=== PATIENT | female | born 1945 | race Caucasian/White ===

== ENCOUNTER 2017-05-21 21:04 | Emergency (ER) | payer OTHER, MEDICARE ==
[~2017-05-21] VITALS: Ht 162.6 cm; Wt 88.5 kg
[~2017-05-21 21:04] MED LIST: ACETAMINOPHEN500 M4 PO; ADVIL200 M2 PO; ASPIRIN EC81 M1 PO; ATORVASTATIN CA80 M1 PO; CALTRATE 600 +1 EACH PO; CIPRO500 M1 PO; CLOPIDOGREL75 M1 PO; CO Q-10400 MG PO; CRESTOR20 MG PO; FLAGYL500 MG PO; FUROSEMIDE20 M1 PO; JANUVIA100 M1 PO; LISINOPRIL2.5 M1 PO; METAMUCIL0.52 GM PO; METOPROLOL TART25 M1 PO; NEXIUM40 M1 PO; PERCOCET 5-3251 EACH PO; PREDNISONE10 MG PO; SENOKOT8.6 M2 PO; SYNTHROID0.125 MG PO; SYNTHROID125 MCG PO; VITAMIN D1000 UNI1 PO; VITAMIN E400 UNI2 PO; ZOFRAN ODT4 M1 SL
[2017-05-21 21:30] LABS: ABSOLUTE BASOPHIL COUNT 0.1 /CUMM (0.0-0.2); ABSOLUTE EOSINOPHIL COUNT 0.1 /CUMM (0.0-0.7); ABSOLUTE LYMPH COUNT 2.4 /CUMM (1.2-3.4); ABSOLUTE MONOCYTE COUNT 0.5 /CUMM (0.10-0.60); BASOPHIL % 1.1 % (0.0-2.0); EOSINOPHIL % 2.1 % (0-5); GRANULOCYTE % 48.9 % (42.2-75.2); HEMATOCRIT 47.5 % (37-47); MEAN CORPUSCULAR HGB 30.7 PG (27.0-31.0); MEAN CORPUSCULAR HGB CONC 33.3 G/DL (33.0-37.0); MEAN PLATELET VOLUME 7.1 FL (7.4-10.4); PLATELET COUNT 322 /CUMM (130-400); RBC DISTRIBUTION WIDTH 13.3 % (11.5-14.5); RED BLOOD CELL CT 5.16 /CUMM (4.20-5.40); WHITE BLOOD CELL COUNT 6.1 /CUMM (4.8-10.8)
--- NOTE | 2017-05-21 23:27 | ED GI/GU/ABDOMINAL COMPLAINT ---
History of Present Illness General Chief Complaint: General Adult Stated Complaint: PAIN BEHIND NECK,EPIGASTRIC PAIN,NAUSEA,DIARRHEA Source: patient Exam Limitations: no limitations Vital Signs & Intake/Output Vital Signs & Intake/Output Vital Signs Date Time Temp Pulse Resp B/P B/P Pulse O2 O2 Flow FiO2 Mean Ox Delivery Rate 05/21 2122 97.5 65 20 135/85 96 Room Air ED Intake and Output 05/22 0000 05/21 1200 Intake Total Output Total Balance Patient 195 lb Weight Allergies Coded Allergies: codeine (Severe, PARALYZED 09/06/15) piroxicam (Intermediate, HALLUCINATIONS 09/06/15) Reconcile Medications Acetaminophen 500 MG TABLET 2 TAB PO DAILY PAIN (Reported) Aspirin (Ecotrin*) 81 MG TABLET.DR 1 TAB PO DAILY HEART/BLOOD (Reported) Atorvastatin Calcium 80 MG TABLET 0.5 TAB PO DAILY CHOLESTEROL (Reported) Calcium Carbonate/Vitamin D3 (Caltrate 600 + D Tablet) 600 MG-800 TABLET 1 TAB PO DAILY SUPPLEMENT (Reported) Cholecalciferol (Vitamin D3) (Vitamin D) 1,000 UNIT CAPSULE 1 CAP PO DAILY SUPPLEMENT (Reported) Clopidogrel Bisulfate (Clopidogrel) 75 MG TABLET 1 TAB PO DAILY BLOOD THINNER (Reported) Esomeprazole (Nexium) 40 MG CAPSULE.DR 1 CAP PO DAILY PRN GI (Reported) Furosemide 20 MG TABLET 1 TAB PO EOD DIURETIC (Reported) Ibuprofen (Advil) 200 MG TABLET 4 TAB PO QPM PAIN (Reported) Levothyroxine Sodium (Synthroid) 125 MCG TABLET 1 TAB PO DAILY THYROID ( Reported) Lisinopril 2.5 MG TABLET 1 TAB PO DAILY BP (Reported) Metoprolol Tartrate 25 MG TABLET 1 TAB PO BID HEART/BP (Reported) Ondansetron (Zofran Odt) 4 MG TAB.RAPDIS 1 TAB SL TID PRN NAUSEA Psyllium Husk (Metamucil) (Unknown Strength) CAPSULE (Unknown Dose) PO QPM SUPPLEMENT (Reported) Sennosides (Senokot) 8.6 MG TABLET 1 TAB PO PRN GI (Reported) Sitagliptin Phosphate (Januvia) 100 MG TABLET 1 TAB PO DAILY DM (Reported) Ubidecarenone (Co Q-10) 400 MG CAPSULE 1 CAP PO DAILY SUPPLEMENT (Reported) Vitamin E Mixed (Vitamin E) 400 UNIT TABLET 2 TAB PO DAILY SUPPLEMENT ( Reported) Triage Note: PT TO ED WITH MULTIPLE COMPLAINTS: ACHES TO SIDES OF NECK, EPIGASTRIC PAIN, +N/D, DRY COUGH AND SORETHROAT SINCE LAST NIGHT. 'THE LAST TIME I HAD PAIN IN MY THROAT I HAD A HEART ATTACK" FLU SWAB DONE. BLOODS DRAWN AND SEN TTO LAB Triage Nurses Notes Reviewed? yes ? n Is pt currently ? No Onset: Gradual Duration: week(s):, waxing and waning Timing: recent history Quality/Severity: cramping Location: epigastric Radiation: no radiation Activities at Onset: none Prior Abdominal Problems: similar symptoms Modifying Factors: Worsens With: palpation. Associated Symptoms: dizziness HPI: 71 yo woman, h/o MO in 2017, presents with several concerns, notably mid epigastric discomfort and burning, with nausea and diarrhea, occasional pain in her throat, back and neck. She notes dizziness for the past several months, had an unremarkable evaluation by neurology, including a benign brain MRI. She notes a dry non productive cough, generalized malaise, body aches. "I feel I could just lie down and fall asleep." Symptoms began 2-3 days ago. No radiating pain down arms. No diaphoresis, dizziness Past History Travel History Traveled to [place] past 21 day No Medical History Any Pertinent Medical History? see below for history Neurological: NONE EENT: NONE Cardiovascular: CAD, myocardial infarction, CHOL Respiratory: NONE Gastrointestinal: diverticulitis, GERD Hepatic: NONE Renal: NONE Musculoskeletal: NONE Psychiatric: NONE Endocrine: hypothyroidism Blood Disorders: NONE Cancer(s): breast cancer [employer]GER/Reproductive: NONE Surgical History Surgical History: hysterectomy, right mastectomy CARDIAC STENT X 2 Psychosocial History What is your primary language Slovenian Tobacco Use: Quit <30 days ago ETOH Use: occasional use Illicit Drug Use: denies illicit drug use Family History Hx Contributory? No Review of Systems Review of Systems Constitutional: Reports: no symptoms. EENTM: Reports: no symptoms. Respiratory: Reports: no symptoms. Cardiovascular: Reports: no symptoms. GI: Reports: no symptoms. Genitourinary: Reports: no symptoms. Musculoskeletal: Reports: no symptoms. Skin: Reports: no symptoms. Neurological/Psychological: Reports: no symptoms. Hematologic/Endocrine: Reports: no symptoms. Immunologic/Allergic: Reports: no symptoms. All Other Systems: Reviewed and Negative Physical Exam Physical Exam General Appearance: well developed/nourished, no apparent distress, alert, awake , comfortable Head: atraumatic, normal appearance Eyes: Bilateral: normal appearance, PERRL, EOMI. Ears, Nose, Throat, Mouth: hearing grossly normal, dry mucosa, dry lips Neck: normal inspection, supple, full range of motion Respiratory: normal breath sounds, chest non-tender, no respiratory distress, quiet respiration Cardiovascular: regular rate/rhythm Gastrointestinal: normal bowel sounds, soft, mild mid epigastric tenderness with mild distension. Back: normal inspection Extremities: normal range of motion Neurologic/Psych: no motor/sensory deficits, awake, alert, oriented x 3 Skin: intact, normal color, warm/dry Core Measures ACS in differential dx? No Sepsis Present: No Sepsis Focused Exam Completed? No Progress Differential Diagnosis: mi vs acs vs influenza vs gastrointestinal pathology ( ulcer, hepatitis, pancreatitis vs other). Plan of Care: Orders Procedure Date/time Status TROPONIN LEVEL 05/22 0005 Complete EKG 05/22 0005 Active Add-on Test (ER Only) 05/21 233 Active LIPASE 05/21 2120 Complete AMYLASE 05/21 2120 Complete RAPID VIRAL INFLUENZA A 05/21 2119 Complete TROPONIN LEVEL 05/21 2119 Complete MAGNESIUM 05/21 2119 Complete COMPREHENSIVE METABOLIC PANEL 05/21 2119 Complete CBC WITHOUT DIFFERENTIAL 05/21 2119 Complete EKG 05/21 2106 Active Laboratory Tests 05/22/17 0004: Troponin I < 0.01 05/21/172120: Anion Gap 12, Estimated GFR > 60, BUN/Creatinine Ratio 31.4 H, Glucose 156 H, Calcium 10.0, Magnesium 2.0, Total Bilirubin 0.5, AST 18, ALT 23, Alkaline Phosphatase 64, Troponin I < 0.01, Total Protein 7.5, Albumin 4.5, Globulin 3.0, Albumin/Globulin Ratio 1.5, Amylase 66, Lipase 195, CBC w Diff NO MAN DIFF REQ, RBC 5.16, MCV 92.0, MCH 30.7, MCHC 33.3, RDW 13.3, MPV 7.1 L, Gran % 48.9, Lymphocytes % 39.3, Monocytes % 8.6, Eosinophils % 2.1, Basophils % 1.1, Absolute Granulocytes 3.0, Absolute Lymphocytes 2.4, Absolute Monocytes 0.5, Absolute Eosinophils 0.1, Absolute Basophils 0.1 Microbiology 05/21 2119 NASOPHARYN: Influenza Virus A & B Rapid Smear - COMP Diagnostic Imaging: Viewed by Me: Radiology Read, CT Scan. Discussed w/RAD: Radiology Read, CT Scan. Radiology Impression: PATIENT: MADELYN DAVALOS PRESENT AGE: 71 PATIENT ACCOUNT NO: [id number] : 45 LOCATION: [facility] ORDERING PHYSICIAN: Fernando Pelletier MD SERVICE DATE: 05/21/177013 EXAM TYPE: CAT - CT ABD & PELVIS W/O IV CONTRAS EXAMINATION: CT ABDOMEN AND PELVIS WITHOUT CONTRAST CLINICAL INFORMATION: Mid epigastric pain COMPARISON: CT scan abdomen pelvis January 05, 2017 TECHNIQUE: Multidetector volumetric imaging was performed from the superior aspect of the liver through the pubic symphysis. Sagittal and coronal reformatted images were obtained on the technologist's workstation. DLP: 620.36 mGy-cm FINDINGS: LUNG BASES: The visualized lung bases are unremarkable. LIVER, GALLBLADDER, AND BILIARY TREE: The liver is normal in size, shape, and attenuation. No focal hepatic lesion or biliary ductal dilatation is present. The gallbladder is unremarkable with no evidence of radiopaque gallstones, gallbladder wall thickening, or obvious pericholecystic inflammatory changes. PANCREAS: Unremarkable. SPLEEN: Unremarkable. ADRENAL GLANDS: Unremarkable. KIDNEYS AND URETERS: No hydronephrosis. There are parapelvic cysts in the left kidney. 1 mm nonobstructive stone upper pole of the left kidney. This is unchanged since CAT scan January 05, 2017. No ureteral calculi. BLADDER: Unremarkable. GASTROINTESTINAL TRACT: Marked diverticulosis of the left colon and sigmoid with scattered diverticula throughout the right colon. No diverticulitis. No acute change of the bowel. No bowel obstruction. No bowel wall thickening or edema. Moderate to large-volume of stool scattered throughout the colon. The appendix is normal. The small bowel loops are unremarkable. ABDOMINAL WALL: No ventral hernia. There are surgical clips at the anterior abdominal wall around the umbilicus region and in the pelvis. No fluid collection or inflammation involving the abdominal wall. LYMPH NODES: Normal. VASCULAR: Atherosclerotic vascular wall calcifications throughout the abdomen. PELVIC VISCERA: Uterus is absent. No adnexal abnormality. OSSEOUS STRUCTURES: Degenerative spondylosis spine. Multilevel endplate spurring and facet joint arthrosis. Status post right hip replacement IMPRESSION: No acute abnormality CT scan abdomen and pelvis. Diverticulosis of colon but no acute change of the bowel. Stable 1 mm stone upper pole of the left kidney. DICTATED BY: Theo Irwin MD DATE/TIME DICTATED:05/22/1756 FOIL SPINNER:JACKIE DATE/TIME TRANSCRIBED:05/22/1756 CONFIDENTIAL, DO NOT COPY WITHOUT APPROPRIATE AUTHORIZATION. <Electronically signed in Other Vendor System> SIGNED BY: Theo Irwin MD 05/22/17106 CXR Impression: PATIENT: MADELYN DAVALOS PRESENT AGE: 71 PATIENT ACCOUNT NO: [id number] : 45 LOCATION: [facility] ORDERING PHYSICIAN: Fernando Pelletier MD SERVICE DATE: 05/21/17 EXAM TYPE: RAD - XRY- PORTABLE CHEST XRAY EXAMINATION: XR PORTABLE CHEST CLINICAL INFORMATION: Dyspnea COMPARISON: Chest x-ray January 05, 2017 TECHNIQUE: Portable frontal view of the chest was obtained. 12:14 AM FINDINGS: No significant abnormality is noted involving the heart, lungs, mediastinum, bony thorax or soft tissues. Surgical clips over the right lung base. IMPRESSION: Unremarkable examination. DICTATED BY: Theo Irwin MD DATE/TIME DICTATED:05/22/1746 FOIL SPINNER:JACKIE DATE/TIME TRANSCRIBED:05/22/1746 CONFIDENTIAL, DO NOT COPY WITHOUT APPROPRIATE AUTHORIZATION. <Electronically signed in Other Vendor System> SIGNED BY: Theo Irwin MD 05/22/1751 Initial ED EKG: lafb, nsr, no change from prior Repeat EKG: unchanged Departure Departure Disposition: HOME OR SELF CARE Condition: Stable Clinical Impression Primary Impression: Abdominal pain Secondary Impressions: Dizziness Referrals: Carolynn THAKKAR,Angel Luis Cano (PCP/Family) Departure Forms: Customer Survey General Discharge Information Comments 05/22/17, 1:33am... pt feeling better after iv fluids, ct scan benign, labs benign, trop/ekg benign x 2... pt has had these symptoms for the past several months. She is able to ambulate in the ED without problem. I encouraged close follow up with pmd and GI.
--- NOTE | 2017-05-22 00:52 | RADIOLOGY REPORT ---
EXAMINATION: XR PORTABLE CHEST CLINICAL INFORMATION: Dyspnea COMPARISON: Chest x-ray January 05, 2017 TECHNIQUE: Portable frontal view of the chest was obtained. 12:14 AM FINDINGS: No significant abnormality is noted involving the heart, lungs, mediastinum, bony thorax or soft tissues. Surgical clips over the right lung base. IMPRESSION: Unremarkable examination.
--- NOTE | 2017-05-22 01:07 | CT SCAN REPORT ---
EXAMINATION: CT ABDOMEN AND PELVIS WITHOUT CONTRAST CLINICAL INFORMATION: Mid epigastric pain COMPARISON: CT scan abdomen pelvis January 05, 2017 TECHNIQUE: Multidetector volumetric imaging was performed from the superior aspect of the liver through the pubic symphysis. Sagittal and coronal reformatted images were obtained on the technologist's workstation. DLP: 620.36 mGy-cm FINDINGS: LUNG BASES: The visualized lung bases are unremarkable. LIVER, GALLBLADDER, AND BILIARY TREE: The liver is normal in size, shape, and attenuation. No focal hepatic lesion or biliary ductal dilatation is present. The gallbladder is unremarkable with no evidence of radiopaque gallstones, gallbladder wall thickening, or obvious pericholecystic inflammatory changes. PANCREAS: Unremarkable. SPLEEN: Unremarkable. ADRENAL GLANDS: Unremarkable. KIDNEYS AND URETERS: No hydronephrosis. There are parapelvic cysts in the left kidney. 1 mm nonobstructive stone upper pole of the left kidney. This is unchanged since CAT scan January 05, 2017. No ureteral calculi. BLADDER: Unremarkable. GASTROINTESTINAL TRACT: Marked diverticulosis of the left colon and sigmoid with scattered diverticula throughout the right colon. No diverticulitis. No acute change of the bowel. No bowel obstruction. No bowel wall thickening or edema. Moderate to large-volume of stool scattered throughout the colon. The appendix is normal. The small bowel loops are unremarkable. ABDOMINAL WALL: No ventral hernia. There are surgical clips at the anterior abdominal wall around the umbilicus region and in the pelvis. No fluid collection or inflammation involving the abdominal wall. LYMPH NODES: Normal. VASCULAR: Atherosclerotic vascular wall calcifications throughout the abdomen. PELVIC VISCERA: Uterus is absent. No adnexal abnormality. OSSEOUS STRUCTURES: Degenerative spondylosis spine. Multilevel endplate spurring and facet joint arthrosis. Status post right hip replacement IMPRESSION: No acute abnormality CT scan abdomen and pelvis. Diverticulosis of colon but no acute change of the bowel. Stable 1 mm stone upper pole of the left kidney.
[2017-05-22 01:35] VITALS: BP 132/78
== END 2017-05-22 01:37 ==
LOC: ERH 21:04
PROVIDERS: Emergency Medicine
DX: R10.13 Epigastric pain (principal); R42 Dizziness and giddiness; M54.2 Cervicalgia; R05 Cough; M79.1 Myalgia; M54.9 Dorsalgia, unspecified
CPT/HCPCS: 71045; 74176; 87804; 87804-59; 93005; 93010; 96361; 96374; 96375; J2405